=== PATIENT | female | born 1985 | race Caucasian/White ===

== ENCOUNTER 2016-07-27 21:10 | Emergency (ER) | payer OTHER ==
[~2016-07-27] VITALS: Ht 160 cm; Wt 96.4 kg
[~2016-07-27 21:10] MED LIST: ALPR0.5T8 PO; IBUP800T28 PO; INSLIS PERCUTAN
[2016-07-27 21:15] VITALS: BP 152/85; PULSE 129; RESP 22; O2SAT 100
[2016-07-28 00:02] LABS: BASOPHILS % (AUTO) 0.1 % (0-3); EOSINOPHILS % (AUTO) 0.7 % (0-5); MONOCYTES % (AUTO) 7.2 % (4-12); Mean Corpuscular Hemoglobin 33.3 pg (27.0-35.0); Mean Corpuscular Volume 93.3 fL (81-100); NEUTROPHILS % (AUTO) 77.6 % (40-74); Platelet Count 138 bil/L (150-400)
[2016-07-28 00:24] LABS: Magnesium 1.5 mg/dL (1.6-2.6)
--- NOTE | 2016-07-28 01:06 | ED.REPORT ---
HPI-Preg Under 20 Weeks Date of Service Jul 28, 2016 ED Provider: Jhonny Kate MD Patient is 31 year old female who is 19 weeks and has a history of Type 1 diabetes mellitus and anxiety who presents to the ED complaining of severe abdominal pain that began yesterday evening. Her pain begins at her waist and extends all the way down to her suprapubic region. She also reports having low back pain, with a "bulge" that is present on the left side of her low back. Patient denies experiencing any abdominal pain or vaginal bleeding during this . Patient reports the sensation that her heart is racing and admits that she has a history of anxiety. She has been unable to take her usual anxiety medications due to her . The patient has not previously had a miscarriage or an incompetent cervix. Patient reports that she has been unable to urinate since arriving to the ED. She denies dysuria or increased urination. Patient also reports having swelling in her legs, which is abnormal for her. Her VOCATIONAL TECHNICAL EDUCATION TEACHER is Dr. Roberts. Nursing Notes Stated Complaint: 19WEEKS PREG/PELVIC PAIN/TYPE 1 DIABETIC Chief Complaint: Female Abdominal Pain Nursing Notes Reviewed: Yes Allergies: Coded Allergies: Opioids-Meperidine and Related (Verified Allergy, Severe, HIVES ( ALLERGIC TO PRESERVATIVE-FREE WELL), 07/27/16) Sulfa (Sulfonamide Antibiotics) (Verified Allergy, Severe, RASH, 07/27/16) meperidine (Verified Allergy, Severe, HIVES, 07/27/16) oxycodone HCl (Verified Allergy, Unknown, UNKNOWN (tolerates vicodin), 07/27) varenicline (Verified Allergy, Unknown, 07/27/16) acetaminophen (Verified Adverse Reaction, Severe, elevated liver function tests from [facility], 07/27/16) Scheduled Insulin Human Lispro (HumaLOG U100 Insulin Vial) 100 Unit/Ml Unit Unknown Dose PERCUTAN continuous infusion Check blood sugars before meals and at bedtime. Use correction factor only before meals. Blood Sugar Lispro Correction: <151, 0 units; 151-175, 1 unit; 176-200, 2 units; 201-225, 3 units; 226-250, 4 units; 251-275, 5 units; 276-300 , 6 units; 301-325, 7 units; 326-350, 8 units; 351-375, 9 units; 376-400, 10 units; >400, 12 units. Scheduled PRN Alprazolam (Alprazolam) 0.5 Mg Tablet 0.5 MG PO BID PRN PRN For Anxiety Ibuprofen (Ibuprofen) 800 Mg Tablet 800 MG PO TID PRN PRN For Pain General Time Seen by Provider: 01:13 Chief Complaint Abdominal pain Hx Obtained From: Patient Arrived By: Walk-in Onset Occurred: 1 day ago Symptom Duration: Since onset Progression Since Onset: Gradually worsening Location: : Abdomen lower Quality: Painful Severity: Current: Severe Severity: Maximum: Severe Recent Healthcare: No recent doctor visit, No recent hospitalization Similar Sx Previous: No Past Medical History Past Medical History Type 1 diabetes mellitus Elevated liver enzymes. Scoliosis. anxiety Past Surgical History Reports: , Hysterectomy Family History Noncontributory Smoking History Former Smoker Social History Other Social History: Good social support, Lives with children, Local resident Ambulatory Status Independent Review of Systems Cardiovascular: Reports: Palpitations GI: Reports: Abdominal pain Female: Reports: , Urination decreased, Denies: Dysuria, Urination increased, Vaginal bleeding - abnl Musculoskeletal: Reports: Back pain, Extremity swelling, Denies: Extremity pain Complete sys rev & neg: except as marked. Psychiatric: Reports: Anxiety Physical Exam Initial Vital Signs Vital Signs (First) Date Time Temp Pulse Resp B/P Pulse Ox O2 Delivery O2 Flow Rate FiO2 07/27/16 21:15 37.0 129 22 152/85 100 Room Air Initial VS: Reviewed, Vital signs abnormal Head / Eyes: Atraumatic, Normocephalic, PERRL ENT: Mucous membranes moist Neck: Supple, Full range of motion Neurologic: Alert, Oriented, Nonfocal General/Constitutional: Awake, Alert Behavior: Positive: Agitated, Anxious Abdomen: Soft, Non-tender gravid abdomen Female Genitourinary: Exam deferred : FHTs NL Respiratory / Chest: Breath sounds NL, Breath sounds = bilat, No respiratory distress, No rales, No rhonchi, No wheezing Cardiovascular: Regular rhythm, Heart sounds NL, No murmurs Heart Rate / Rhythm: Positive: Tachycardia Lower Extremity / Pelvis / MS: No deformity, Neurologic intact, Vascular intact edematous legs Skin: Warm, Dry Abscess #1 Location/Condition: Positive: Perirectal... (Tender, appears deep) Abnormal Mood/Affect: Positive: Anxious Interpretation & Diagnostics Lab Results Interpretation Result Diagram: 07/27/16 2350 07/27/16 2350 Test 07/27/16 23:45 07/27/16 23:50 Hold Urine Received (Received) White Blood Count 14.8th/mm3 (3.8-10.1) Red Blood Count 4.00mil/mm3 (3.90-5.20) Hemoglobin 13.3g/dL (12.0-15.6) Hematocrit 37.3% (35.0-46.0) Mean Corpuscular Volume 93.3fL (81-100) Mean Corpuscular Hemoglobin 33.3pg (27.0-35.0) Mean Corpuscular Hemoglobin Concent 35.7% (32.0-37.0) Red Cell Distribution Width 12.5% (12.3-15.4) Platelet Count 138bil/L (150-400) Neutrophils (%) (Auto) 77.6% (40-74) Lymphocytes (%) (Auto) 13.5% (14-46) Monocytes (%) (Auto) 7.2% (4-12) Eosinophils (%) (Auto) 0.7% (0-5) Basophils (%) (Auto) 0.1% (0-3) Sodium Level 134mEq/L (134-144) Potassium Level 3.7mEq/L (3.5-5.2) Chloride Level 100mEq/L (97-108) Carbon Dioxide Level 21mmol/L (18-29) Blood Urea Nitrogen 9mg/dL (6-20) Creatinine 0.46mg/dL (0.57-1.00) Estimat Glomerular Filtration Rate 225mL/min (>59) Glucose Level 91mg/dL (60-99) Calcium Level 9.1mg/dL (8.5-10.1) Magnesium Level 1.5mg/dL (1.6-2.6) Total Bilirubin 0.5mg/dL (0.0-1.2) Aspartate Amino Transf (AST/SGOT) 59U/L (0-50) Alanine Aminotransferase (ALT/SGPT) 121U/L (0-32) Alkaline Phosphatase 127U/L (25-150) Total Protein 6.4g/dL (6.4-8.4) Albumin 3.2g/dL (3.4-5.0) Lab Results Interpretation: Elevated white blood count Procedures Incision & Drainage Abscess Time: 02:25 Procedure Performed by: ED physician Consent / Setup / Site Prep: Consent from patient, Time-out performed, Hand hygiene observed, Stand sterile technique, Standard surgical scrub, Sterile drapes applied Location of Abscess: left perirectal Skin Preparation Agent: Shurclens Local Anesthesia: Lidocaine w epi 1%, Other (6cc) Incised Abscess with Scalpel: #11 Pus Drained: Medium, Purulent discharge Irrigation: Yes, Copious Post-Procedure / Complications: Packing placed (10cm of 1/4 inch plain), Dressing applied, No complications, Condition improved, Tolerated procedure well , Patient stable Re-Eval/Medical Decision Med Decision/Clinical Course 31-year-old female at 19 weeks presents with a perirectal abscess and a panic attack associated with this. She was given Dilaudid for pain management and anxiolysis. The abscess was I&D without difficulty. She was placed on Augmentin and will follow up with her regular doctor. Source of Hx: Old records Re-Evaluation/Progress : Time of Eval: 02:45 Patient Status: Condition improved Re-Evaluation/Progress Note: I&D complete. Patient understands and agrees with the plan to be discharged home. Discharge instructions and follow-up discussed. All questions were addressed. Return to the ED warnings given. Counseled Regarding: Diagnosis, Lab results, Need for follow-up, When/why to return to ED Discharge & Departure Primary Impression: Perirectal abscess Disposition: Home Discharge Condition All VS Reviewed: Yes Condition: Stable Patient Instructions: Abscess Incision and Drainage (ED) Additional Instructions: Amoxicillin clavulanate (Augmentin) 875 mg, one pill twice a day for 10 days for 20 prescription written. Warm compresses. Follow-up with one of your doctors in 2 days for recheck and repacking if needed. Tylenol as needed for pain. Referrals: Desi Roberts MD (PCP) Vikashibe Attestation Portions of this note were transcribed by Khadra Dominguez. I, Dr. Kate personally performed the history, physical exam and medical decision-making; I reviewed and confirmed the accuracy of the information in the transcribed note. Signed by: Natalya Cotto, 07/28/2016 0404 copies to: Desi Roberts MD, Howard L MD Jul 28, 2016 01:06 Khadra Dominguez Jul 28, 2016 01:14
[2016-07-28] MEDS ORDERED: HYDROmorphone 1 mg/mL Inj IM ONE (01:15)
[2016-07-28 01:43] VITALS: BP 122/66; PULSE 109; RESP 18; O2SAT 97
[2016-07-28] MEDS ORDERED: Lidocaine 1%-Epi 1:100,000 20 mL Inj ONE (01:46)
[2016-07-28 03:11] VITALS: BP 131/73; PULSE 65; RESP 15; O2SAT 100
[2016-07-28] MEDS ORDERED: _Amoxicillin-Clavulanate 875-125 mg Tablet PO SCH (08:30)
== END 2016-07-28 03:11 | disposition home or self-care (01) ==
LOC: SED 21:38
DX: O99.89 Other specified diseases and conditions complicating pregnancy, childbirth and the puerperium (principal); K61.1 Rectal abscess; R10.30 Lower abdominal pain, unspecified; Z3A.19 19 weeks gestation of pregnancy; E10.9 Type 1 diabetes mellitus without complications; Z87.891 Personal history of nicotine dependence; Z79.899 Other long term (current) drug therapy; Z88.8 Allergy status to other drugs, medicaments and biological substances; Z88.5 Allergy status to narcotic agent; Z88.2 Allergy status to sulfonamides; Z79.4 Long term (current) use of insulin
CPT/HCPCS: 36415; 46050; 80053; 81025; 83735; 85025; 96372; 99285; J1170

== ENCOUNTER 2016-07-28 15:05 | Emergency (ER) | payer OTHER ==
[~2016-07-28] VITALS: Ht 160 cm; Wt 96.4 kg
[2016-07-28 15:09] VITALS: BP 116/74; PULSE 98; RESP 18; O2SAT 99
--- NOTE | 2016-07-28 16:44 | ED.REPORT ---
HPI-Rash / Abscess Date of Service Jul 28, 2016 ED Provider: Sage Auguste MD The patient is a 31 year old female with history of diabetes mellitus, who presents to the emergency department for a wound recheck. The patient was seen in this ED yesterday and had a perirectal abscess incised, drained, and packed. She noticed oozing from the site and the packing fell out prior to arrival. She denies fever, chills, nausea or vomiting She is currently 20 weeks . Nursing Notes Stated Complaint: INCISION BLEEDING Chief Complaint: Skin Rash/Abscess Nursing Notes Reviewed: Yes Allergies: Coded Allergies: Opioids-Meperidine and Related (Verified Allergy, Severe, HIVES ( ALLERGIC TO PRESERVATIVE-FREE WELL), 07/27/16) Sulfa (Sulfonamide Antibiotics) (Verified Allergy, Severe, RASH, 07/27/16) meperidine (Verified Allergy, Severe, HIVES, 07/27/16) oxycodone HCl (Verified Allergy, Unknown, UNKNOWN (tolerates vicodin), 07/27) varenicline (Verified Allergy, Unknown, 07/27/16) acetaminophen (Verified Adverse Reaction, Severe, elevated liver function tests from [facility], 07/27/16) Scheduled Insulin Human Lispro (HumaLOG U100 Insulin Vial) 100 Unit/Ml Unit Unknown Dose PERCUTAN continuous infusion Check blood sugars before meals and at bedtime. Use correction factor only before meals. Blood Sugar Lispro Correction: <151, 0 units; 151-175, 1 unit; 176-200, 2 units; 201-225, 3 units; 226-250, 4 units; 251-275, 5 units; 276-300 , 6 units; 301-325, 7 units; 326-350, 8 units; 351-375, 9 units; 376-400, 10 units; >400, 12 units. Scheduled PRN Alprazolam (Alprazolam) 0.5 Mg Tablet 0.5 MG PO BID PRN PRN For Anxiety Ibuprofen (Ibuprofen) 800 Mg Tablet 800 MG PO TID PRN PRN For Pain General Time Seen by MD: 16:44 Chief Complaint Abscess (recheck) Hx Obtained From: Patient Arrived By: Walk-in Onset Occurred: 5 - 8 hours ago Symptom Duration: Since onset Location: : Rectal area Quality: Painful Severity: Current: Mild Severity: Maximum: Mild Pertinent Negative: Pt denies other symptoms Recent Healthcare: No recent hospitalization, Recent doctor visit Similar Sx Previous: Yes Past Medical History Past Medical History Type 1 diabetes mellitus Elevated liver enzymes. Scoliosis. anxiety Past Surgical History Reports: , Hysterectomy Family History Noncontributory Smoking History Former Smoker Social History Other Social History: Good social support, Lives with children, Local resident Ambulatory Status Independent Review of Systems Review of Systems Note: +wound recheck Constitutional: Denies: Chills, Fever GI: Denies: Nausea, Vomiting Musculoskeletal: Reports: Extremity pain Skin: Reports Rash Complete sys rev & neg: except as marked. Female: Reports: Physical Exam Initial Vital Signs Vital Signs (First) Date Time Temp Pulse Resp B/P Pulse Ox O2 Delivery O2 Flow Rate FiO2 07/28/16 15:09 36.7 98 18 116/74 99 Room Air Initial VS: Reviewed Head / Eyes: Atraumatic, Normocephalic, PERRL ENT: Mucous membranes moist, Conjunctiva normal, No scleral icterus Neck: Supple, Non-tender, Full range of motion Respiratory: Breath sounds normal, Clear to auscultation, No respiratory distress Cardiovascular: Regular rate & rhythm, Heart sounds normal, Intact distal pulses Abdomen / GI: Soft, Non-tender, No guarding, No rebound, No distention Extremities: Vascular intact, Neuro intact, No swelling, No tenderness Neurologic: Alert, Oriented, Nonfocal Psychiatric: Mood/affect normal, Behavior normal, Normal thought content General/Constitutional: Awake, Alert, No acute distress, Cooperative Skin: Color NL, Warm, Dry Rash / Lesion Notes: 1 cm incision left perirectal. There is no fluctuance or swelling. There was a small amount of purulent drainage. No surrounding erythema. Procedures Procedure Notes: NOTES: I repacked the recently incised and drained perirectal abscess. 1/4 inch gauze was used. Patient tolerated procedure well. No complications. Re-Eval/Medical Decision Med Decision/Clinical Course 31-year-old female 20 weeks with left perirectal abscess I&D last night. She is here because the packing came out. It is still draining. It is still open. There is no surrounding erythema or fluctuance. I replaced the packing. I gave her more packing to replace home. She is advised to place at home and do sitz baths twice a day. Follow-up with primary doctor 2 days for recheck. Source of Hx: Old records Re-Evaluation/Progress : Time of Eval: 17:18 Re-Evaluation/Progress Note: Rechecked the patient. Discussed plan to replace the packing and discharge home. All questions were addressed. Counseled Regarding: Diagnosis, Need for follow-up, When/why to return to ED Discharge & Departure Impression: Primary Impression: Encounter for wound re-check Additional Impression: Perirectal abscess Disposition: Home Discharge Condition All VS Reviewed: Yes Condition: Stable Patient Instructions: Abscess Incision and Drainage (ED) Additional Instructions: Thank you for entrusting us with your care today. We were able to recheck the wound and replace the packing. The wound appears to be healing well. If the packing falls out again you can either go to your doctor, urgent care, or you can replace it yourself. Continue to take the Augmentin as previously prescribed. Continue to apply warm compresses a few times throughout the day. I also recommend taking Epson salt baths 1-2 times per day. Followup with your regular doctor for recheck in the next 1-2 days. Please return to the emergency department if you develop increased pain, swelling or redness, fever, chills, vomiting, or any other new or concerning symptoms. Referrals: Desi Roberts MD (PCP) Scribe Attestation Portions of this note were transcribed by Leni Palacios. I, Dr. Auguste personally performed the history, physical exam and medical decision-making; I reviewed and confirmed the accuracy of the information in the transcribed note. Signed by: Natalya Pringle, 07/28/2016 at 1730. copies to: Desi Roberts MD, Ben M MD Jul 28, 2016 16:44 Leni Palacios Jul 28, 2016 16:56
[2016-07-28] MEDS ORDERED: HYDROmorphone 0.5 mg/0.5 mL iSecure Syringe IM ONE (17:25)
== END 2016-07-28 17:52 | disposition home or self-care (01) ==
LOC: SED 15:05
DX: O99.712 Diseases of the skin and subcutaneous tissue complicating pregnancy, second trimester (principal); K61.1 Rectal abscess; E10.9 Type 1 diabetes mellitus without complications; Z3A.20 20 weeks gestation of pregnancy; Z48.01 Encounter for change or removal of surgical wound dressing; Z87.891 Personal history of nicotine dependence; Z79.4 Long term (current) use of insulin; Z88.5 Allergy status to narcotic agent; Z88.2 Allergy status to sulfonamides; Z88.8 Allergy status to other drugs, medicaments and biological substances; Z88.6 Allergy status to analgesic agent
CPT/HCPCS: 96372; 99283; J1170

== ENCOUNTER 2016-08-13 00:52 | Emergency (ER) | payer OTHER ==
[~2016-08-13] VITALS: Ht 160 cm; Wt 96.4 kg
[2016-08-13 00:54] VITALS: BP 137/68; PULSE 116; RESP 20; O2SAT 98
--- NOTE | 2016-08-13 01:26 | ED.REPORT ---
HPI-Rash / Abscess Date of Service Aug 13, 2016 ED Provider: Andre Wong DO A 22 week 31 year old female with a history of anxiety, diabetes, and c -section presents to the ED complaining of an abscess on her right buttock. The pt has been seen in the ED for this previously, but the abscess continues to worsen. She fell on her buttocks prior to arrival, but denies abdominal pain or vaginal bleeding. The pt has an appointment with a surgeon in the morning. Nursing Notes Stated Complaint: FALL/ SKIN RASH ABSCESS Chief Complaint: Skin Rash/Abscess Nursing Notes Reviewed: Yes Allergies: Coded Allergies: Opioids-Meperidine and Related (Verified Allergy, Severe, HIVES ( ALLERGIC TO PRESERVATIVE-FREE WELL), 08/13/16) Sulfa (Sulfonamide Antibiotics) (Verified Allergy, Severe, RASH, 08/13/16) meperidine (Verified Allergy, Severe, HIVES, 08/13/16) oxycodone HCl (Verified Allergy, Unknown, UNKNOWN (tolerates vicodin), ) varenicline (Verified Allergy, Unknown, 08/13/16) acetaminophen (Verified Adverse Reaction, Severe, elevated liver function tests from [facility], 08/13/16) Scheduled Insulin Human Lispro (HumaLOG U100 Insulin Vial) 100 Unit/Ml Unit Unknown Dose PERCUTAN continuous infusion Check blood sugars before meals and at bedtime. Use correction factor only before meals. Blood Sugar Lispro Correction: <151, 0 units; 151-175, 1 unit; 176-200, 2 units; 201-225, 3 units; 226-250, 4 units; 251-275, 5 units; 276-300 , 6 units; 301-325, 7 units; 326-350, 8 units; 351-375, 9 units; 376-400, 10 units; >400, 12 units. Scheduled PRN Alprazolam (Alprazolam) 0.5 Mg Tablet 0.5 MG PO BID PRN PRN For Anxiety Ibuprofen (Ibuprofen) 800 Mg Tablet 800 MG PO TID PRN PRN For Pain General Time Seen by MD: 01:25 Chief Complaint Abscess Hx Obtained From: Patient Arrived By: Walk-in Onset Occurred: More than a week ago... Symptom Duration: Since onset Recent Healthcare: No recent hospitalization, Recent doctor visit Similar Sx Previous: Yes Past Medical History Past Medical History Type 1 diabetes mellitus Elevated liver enzymes. Scoliosis. anxiety asthma, resolved Past Surgical History breat reduction abdominoplasty Reports: Family History Noncontributory Smoking History Former Smoker Social History Other Social History: Good social support, Lives with children, Local resident Ambulatory Status Independent Review of Systems Review of Systems Note: abscess Constitutional: Denies: Fever Respiratory: Denies: Non-productive cough Cardiovascular: Denies: Chest pain GI: Denies: Abdominal pain, Nausea, Vomiting Complete sys rev & neg: except as marked. Female: Denies: Vaginal bleeding - abnl Physical Exam Initial Vital Signs Vital Signs (First) Date Time Temp Pulse Resp B/P Pulse Ox O2 Delivery O2 Flow Rate FiO2 08/13/16 00:54 36.6 116 20 137/68 98 Room Air Initial VS: Reviewed General/Constitutional: Awake, Alert Skin: Atraumatic, Color NL, No rash, Warm, Dry Head / Eyes: Atraumatic, Normocephalic, PERRL, EOMI ENT: Atraumatic, Airway patent, Mucous membranes moist Respiratory / Chest: Atraumatic, Breath sounds NL, Breath sounds = bilat, No respiratory distress Cardiovascular: Heart rate NL, Regular rhythm, Heart sounds NL Upper Extremity / MS: Atraumatic, Full range of motion Lower Extremity / Pelvis / MS: Atraumatic, Full range of motion Neurologic: Oriented X3, Speech NL, No motor deficits, No sensory deficits Neck: Atraumatic, Supple, Full range of motion Abdomen: Atraumatic, Soft, Non-tender Back: Atraumatic, Full range of motion Female Genitourinary: 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, Atraumatic gravid, nontender uterus Rectum / Perineum: Atraumatic perianal abscess at the 6 o'clock position with firmness and fluctuance Psychiatric: Affect NL, Mood NL Interpretation & Diagnostics Lab Results Interpretation Result Diagram: 08/13/16 02208/13/16 022 Test 08/13/16 02:20 White Blood Count 12.3th/mm3 (3.8-10.1) Red Blood Count 4.32mil/mm3 (3.90-5.20) Hemoglobin 14.2g/dL (12.0-15.6) Hematocrit 40.4% (35.0-46.0) Mean Corpuscular Volume 93.5fL (81-100) Mean Corpuscular Hemoglobin 32.9pg (27.0-35.0) Mean Corpuscular Hemoglobin Concent 35.1% (32.0-37.0) Red Cell Distribution Width 12.7% (12.3-15.4) Platelet Count 161bil/L (150-400) Neutrophils (%) (Auto) 71.9% (40-74) Lymphocytes (%) (Auto) 19.9% (14-46) Monocytes (%) (Auto) 5.9% (4-12) Eosinophils (%) (Auto) 1.0% (0-5) Basophils (%) (Auto) 0.3% (0-3) Urine Color Straw (YELLOW) Urine Appearance Clear (CLEAR,HAZY) Urine pH 6.5 (5.0-8.0) Urine Specific [place] 1.003 (1.003-1.035) Urine Protein Negativemg/dL (NEG,TRACE) Urine Glucose (UA) Negativemg/dL (NEGATIVE) Urine Ketones Negativemg/dL (NEGATIVE) Urine Occult Blood Negative (NEGATIVE) Urine Nitrite Negative (NEGATIVE) Urine Bilirubin Negative (NEGATIVE) Urine Urobilinogen Normalmg/dL (NORMAL) Urine Leukocyte Esterase Negative (NEGATIVE) Urine RBC 0-2/hpf (0-2) Urine WBC 0-5/hpf (0-5) Urine Epithelial Cells Occasional/hpf (NONE-MOD) Urine Crystals None seen (NONE SEEN) Urine Bacteria None/hpf (NONE-FEW) Urine Hyaline Casts None/lpf (NONE) Urine Granular Casts None seen (NONE SEEN) Urine Waxy Casts None seen (NONE SEEN) Urine Red Blood Cell Casts None seen (NONE SEEN) Urine White Blood Cell Casts None seen (NONE SEEN) Urine Mucus None seen (None Seen) Urine Trichomonas None seen (NONE SEEN) Urine Yeast None (NONE SEEN) Urine Culture Reflexed Not indicated Sodium Level 136mEq/L (134-144) Potassium Level 3.5mEq/L (3.5-5.2) Chloride Level 101mEq/L (97-108) Carbon Dioxide Level 20mmol/L (18-29) Blood Urea Nitrogen 11mg/dL (6-20) Creatinine 0.45mg/dL (0.57-1.00) Estimat Glomerular Filtration Rate 231mL/min (>59) Glucose Level 141mg/dL (60-99) Calcium Level 9.6mg/dL (8.5-10.1) Total Bilirubin 0.5mg/dL (0.0-1.2) Aspartate Amino Transf (AST/SGOT) 81U/L (0-50) Alanine Aminotransferase (ALT/SGPT) 140U/L (0-32) Alkaline Phosphatase 155U/L (25-150) Total Protein 6.9g/dL (6.4-8.4) Albumin 3.6g/dL (3.4-5.0) Hold Singh Top Tube Received (Received) Pulse Oximetry Interpretation Pulse Oximetry Interpretation: 98% on room air Pulse Oximetry: Pulse Ox normal Procedures Lab Results Interpretation Result Diagram: 08/13/1621908/13/16219 Test 08/13/16 02:20 White Blood Count 12.3th/mm3 (3.8-10.1) Red Blood Count 4.32mil/mm3 (3.90-5.20) Hemoglobin 14.2g/dL (12.0-15.6) Hematocrit 40.4% (35.0-46.0) Mean Corpuscular Volume 93.5fL (81-100) Mean Corpuscular Hemoglobin 32.9pg (27.0-35.0) Mean Corpuscular Hemoglobin Concent 35.1% (32.0-37.0) Red Cell Distribution Width 12.7% (12.3-15.4) Platelet Count 161bil/L (150-400) Neutrophils (%) (Auto) 71.9% (40-74) Lymphocytes (%) (Auto) 19.9% (14-46) Monocytes (%) (Auto) 5.9% (4-12) Eosinophils (%) (Auto) 1.0% (0-5) Basophils (%) (Auto) 0.3% (0-3) Urine Color Straw (YELLOW) Urine Appearance Clear (CLEAR,HAZY) Urine pH 6.5 (5.0-8.0) Urine Specific All[place] 1.003 (1.003-1.035) Urine Protein Negativemg/dL (NEG,TRACE) Urine Glucose (UA) Negativemg/dL (NEGATIVE) Urine Ketones Negativemg/dL (NEGATIVE) Urine Occult Blood Negative (NEGATIVE) Urine Nitrite Negative (NEGATIVE) Urine Bilirubin Negative (NEGATIVE) Urine Urobilinogen Normalmg/dL (NORMAL) Urine Leukocyte Esterase Negative (NEGATIVE) Urine RBC 0-2/hpf (0-2) Urine WBC 0-5/hpf (0-5) Urine Epithelial Cells Occasional/hpf (NONE-MOD) Urine Crystals None seen (NONE SEEN) Urine Bacteria None/hpf (NONE-FEW) Urine Hyaline Casts None/lpf (NONE) Urine Granular Casts None seen (NONE SEEN) Urine Waxy Casts None seen (NONE SEEN) Urine Red Blood Cell Casts None seen (NONE SEEN) Urine White Blood Cell Casts None seen (NONE SEEN) Urine Mucus None seen (None Seen) Urine Trichomonas None seen (NONE SEEN) Urine Yeast None (NONE SEEN) Urine Culture Reflexed Not indicated Sodium Level 136mEq/L (134-144) Potassium Level 3.5mEq/L (3.5-5.2) Chloride Level 101mEq/L (97-108) Carbon Dioxide Level 20mmol/L (18-29) Blood Urea Nitrogen 11mg/dL (6-20) Creatinine 0.45mg/dL (0.57-1.00) Estimat Glomerular Filtration Rate 231mL/min (>59) Glucose Level 141mg/dL (60-99) Calcium Level 9.6mg/dL (8.5-10.1) Total Bilirubin 0.5mg/dL (0.0-1.2) Aspartate Amino Transf (AST/SGOT) 81U/L (0-50) Alanine Aminotransferase (ALT/SGPT) 140U/L (0-32) Alkaline Phosphatase 155U/L (25-150) Total Protein 6.9g/dL (6.4-8.4) Albumin 3.6g/dL (3.4-5.0) Hold Singh Top Tube Received (Received) US FAST Exam reassuring heart tones tones: 160 normal movement no contractions Exam Performed by: ED physician Exam Type: Diagnostic Clinical Category: Initial exam Exam Interpreted by: ED physician Indication: Re-Eval/Medical Decision Med Decision/Clinical Course Reassuring ultrasound with good motion and heart rate of 160. No signs of active labor. There is a perianal tenderness and possible abscess. She is going to see his surgeon in less than 6 hours and feel that emergent intervention beyond pain control is indicated right now. She may need an endoscopy to see the extent and the origin of the abscess. There is no evidence of cutaneous involvement at this time. No signs of cellulitis. She will be treated with a dose of IV Dilaudid we will check labs. If all is stable she will be transferred up to labor and delivery for monitoring and then she will be discharged home to see her surgeon later this morning. A labor and delivery nurse came down and did the monitoring. No contractions. Reassuring heart tones. She cleared for discharge. I talked her about her liver enzymes. They are actually a little bit more elevated. She is going to discuss this with her primary care and obstetrics. She feels ready be discharged home and she has follow-up here in a few hours. Source of Hx: Old records Re-Evaluation/Progress : Time of Eval: 01:58 Patient Status: Condition improved Re-Evaluation/Progress Note: Diagnosis and the plan for discharge are discussed. The pt understands and agrees with the plan. All questions are addressed at this time. Counseled Regarding: Diagnosis, Need for follow-up, When/why to return to ED Discharge & Departure Impression: Primary Impression: Perianal abscess Disposition: Home Discharge Condition All VS Reviewed: Yes Condition: Stable Patient Instructions: Abscess (ED) Additional Instructions: . Keep your follow up appointment with Dr. Brady later this morning. Return to the emergency department if you develop any new or worsening symptoms. Discuss pain management with Dr. Brady, Do not drive tonight as you have received IV opiates. 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 Up date the office tomorrow as well. Keep a closes eye on your blood sugar and your liver enzymes. Return if any problems or any worsening symptoms. Your liver enzymes continue to trend up. Your doctor needs to be made aware of this. Call tomorrow to let them know. Referrals: Desi Roberts MD (PCP) Kip Brady MD Attestation Portions of this note were transcribed by Yamel Chambers. I, Dr. Wong personally performed the history, physical exam and medical decision-making; I reviewed and confirmed the accuracy of the information in the transcribed note. Signed by: Natalya Peck, 08/13/2016 and 0227. copies to: Desi Roberts MD; Kip Brady MD, Todd P DO Aug 13, 2016 01:26 YAMEL CHAMBERS Aug 13, 2016 01:59
[2016-08-13] MEDS ORDERED: 0.9% Sodium Chloride 1,000 ML IV ONE (01:55)
[2016-08-13] MEDS ORDERED: Ondansetron 2 mg/mL 2 mL Inj IVPUSH PRN (01:55)
[2016-08-13] MEDS: HYDROmorphone 0.5 mg/0.5 mL iSecure Syringe IVPUSH PRN ×2 (02:24→03:09)
[2016-08-13 02:34] LABS: BASOPHILS % (AUTO) 0.3 % (0-3); MONOCYTES % (AUTO) 5.9 % (4-12); Mean Corpuscular Hemoglobin 32.9 pg (27.0-35.0); Mean Corpuscular Volume 93.5 fL (81-100); NEUTROPHILS % (AUTO) 71.9 % (40-74); Platelet Count 161 bil/L (150-400)
[2016-08-13 02:45] LABS: APPEARANCE,URINE CLEAR (CLEAR,HAZY); COLOR,URINE STRAW (YELLOW); OCCULT BLOOD,URINE NEGATIVE (NEGATIVE); PH,URINE 6.5 (5.0-8.0); UROBILINOGEN,URINE NORMAL (NORMAL)
[2016-08-13 03:21] VITALS: BP 135/70; PULSE 102; RESP 18; O2SAT 99
[2016-08-13] MEDS ORDERED: Sodium Chloride LOK Flush 10 mL Syringe IVFLUSH SCH (08:30)
== END 2016-08-13 03:22 | disposition home or self-care (01) ==
LOC: SED 00:52
DX: O99.612 Diseases of the digestive system complicating pregnancy, second trimester (principal); K61.0 Anal abscess; F41.9 Anxiety disorder, unspecified; E10.9 Type 1 diabetes mellitus without complications; J45.909 Unspecified asthma, uncomplicated; Z3A.22 22 weeks gestation of pregnancy; Z98.890 Other specified postprocedural states; Z87.891 Personal history of nicotine dependence; Z79.4 Long term (current) use of insulin; Z88.5 Allergy status to narcotic agent; Z88.2 Allergy status to sulfonamides; Z88.8 Allergy status to other drugs, medicaments and biological substances; Z88.6 Allergy status to analgesic agent
CPT/HCPCS: 36415; 80053; 81000; 85025; 96374; 96375; 96376; 99285; J1170; J2405; J7030

== ENCOUNTER 2016-08-25 21:09 | Emergency (ER) | payer OTHER ==
[~2016-08-25] VITALS: Ht 160 cm; Wt 99.1 kg
[2016-08-25 21:32] VITALS: BP 119/76; PULSE 95; RESP 21; O2SAT 98
--- NOTE | 2016-08-25 22:10 | ED.REPORT ---
HPI-General Illness Date of Service Aug 25, 2016 ED Provider: Dr. Villanueva A 31 year old female presents to the ED complaining of painful abscess on her left butt cheek described as being close to her anus onset 1 month ago. She went to the hospital immediately at onset and she had an MRI done 4 days ago. She was on Amoxicillin and Augmentin when the symptoms onset. Since onset, the abscess has gotten harder. She has been taking Epson salt bathes daily with mild relief. Nursing Notes Stated Complaint: HIGH BLOOD SUGAR, INCISION HOT/HARD/PAINFUL Chief Complaint: Skin Rash/Abscess Nursing Notes Reviewed: Yes Allergies: Coded Allergies: Opioids-Meperidine and Related (Verified Allergy, Severe, HIVES ( ALLERGIC TO PRESERVATIVE-FREE WELL), 08/13/16) Sulfa (Sulfonamide Antibiotics) (Verified Allergy, Severe, RASH, 08/13/16) meperidine (Verified Allergy, Severe, HIVES, 08/13/16) oxycodone HCl (Verified Allergy, Unknown, UNKNOWN (tolerates vicodin), ) varenicline (Verified Allergy, Unknown, 08/13/16) acetaminophen (Verified Adverse Reaction, Severe, elevated liver function tests from [facility], 08/13/16) Scheduled Insulin Human Lispro (HumaLOG U100 Insulin Vial) 100 Unit/Ml Unit Unknown Dose PERCUTAN continuous infusion Check blood sugars before meals and at bedtime. Use correction factor only before meals. Blood Sugar Lispro Correction: <151, 0 units; 151-175, 1 unit; 176-200, 2 units; 201-225, 3 units; 226-250, 4 units; 251-275, 5 units; 276-300 , 6 units; 301-325, 7 units; 326-350, 8 units; 351-375, 9 units; 376-400, 10 units; >400, 12 units. Scheduled PRN Alprazolam (Alprazolam) 0.5 Mg Tablet 0.5 MG PO BID PRN PRN For Anxiety Ibuprofen (Ibuprofen) 800 Mg Tablet 800 MG PO TID PRN PRN For Pain General Time Seen by MD: 22:10 Chief Complaint Other (Abscess) Hx Obtained From: Patient Arrived By: Walk-in Sudden in Onset?: No Onset Occurred: More than a week ago... (1 month) Symptom Duration: Since onset Severity: Current: Moderate Severity: Maximum: Severe Recent Healthcare: Recent doctor visit Similar Sx Previous: No Past Medical History Past Medical History Patient is 24 weeks . Patient visited ED on 08/13/2016 and was admitted for I&D for perirectal abscess. Recently at wound care clinic, the patient had I&D attempted with suction. She was scheduled for surgery to treat the abscess at last week, but they did not perform the surgery because they were waiting for the MRI results. Type 1 diabetes mellitus Elevated liver enzymes. Scoliosis. anxiety asthma, resolved Past Surgical History breast reduction. abdominoplasty. Reports: (x2) Family History Noncontributory Smoking History Former Smoker Social History Other Social History: Good social support, Lives with children, Local resident Ambulatory Status Independent Review of Systems Abscess on left butt cheek. Full Review of Systems Female: Reports: Complete sys rev & neg: except as marked. Physical Exam Vital Signs Vital Signs Date Time Temp Pulse Resp B/P Pulse Ox O2 Delivery O2 Flow Rate FiO2 08/25/16 21:32 36.3 95 21 119/76 98 Room Air Initial VS: Reviewed Head / Eyes: Atraumatic, Normocephalic, PERRL ENT: Mucous membranes moist, Conjunctiva normal, No scleral icterus Respiratory: Breath sounds normal, Clear to auscultation, No respiratory distress Cardiovascular: Regular rate & rhythm, Heart sounds normal, Intact distal pulses Neurologic: Alert, Oriented General/Constitutional: Awake, Alert Patient is tearful, but in no physiological distress. Abdomen: No guarding, No rebound Upper Extremities Upper Extremity / MS: No swelling, No edema Wrist / Hand: No swelling, No edema Lower Extremity / Pelvis / MS: No swelling, No edema Ankle / Foot: No swelling, No edema Skin: Warm Patient has tender abscess or phlegmon that ultimately started to drain. Still considerable phlegmon in area left of preirectal at the 7 O'clock position. Neurologic: Oriented X3, Speech NL Interpretation & Diagnostics Lab Results Interpretation Test 08/25/16 22:00 08/25/16 22:13 Hold Urine Received (Received) Urine Color Straw (YELLOW) Urine Appearance Clear (CLEAR,HAZY) Urine pH 6.5 (5.0-8.0) Urine Specific [place] 1.015 (1.003-1.035) Urine Protein Negativemg/dL (NEG,TRACE) Urine Glucose (UA) >1000mg/dL (NEGATIVE) Urine Ketones Negativemg/dL (NEGATIVE) Urine Occult Blood Negative (NEGATIVE) Urine Nitrite Negative (NEGATIVE) Urine Bilirubin Negative (NEGATIVE) Urine Urobilinogen Normalmg/dL (NORMAL) Urine Leukocyte Esterase Negative (NEGATIVE) Urine RBC 0-2/hpf (0-2) Urine WBC 0-5/hpf (0-5) Urine Epithelial Cells Few/hpf (NONE-MOD) Urine Crystals None seen (NONE SEEN) Urine Bacteria Few/hpf (NONE-FEW) Urine Hyaline Casts None/lpf (NONE) Urine Granular Casts None seen (NONE SEEN) Urine Waxy Casts None seen (NONE SEEN) Urine Red Blood Cell Casts None seen (NONE SEEN) Urine White Blood Cell Casts None seen (NONE SEEN) Urine Mucus None seen (None Seen) Urine Trichomonas None seen (NONE SEEN) Urine Yeast None (NONE SEEN) Urinalysis Comment None Urine Culture Reflexed Not indicated Procedures Incision & Drainage Abscess I & D Abscess: I went straight into the hole that was previously established and lengthened it to prevent closure. I gently explored the area and found no oculations. Time: 22:29 Procedure Performed by: ED physician Consent / Setup / Site Prep: Consent from patient Skin Preparation Agent: Hibiclens - Chlorhexidine Local Anesthesia: Lidocaine 1% Incised Abscess with Scalpel: #11 Pus Drained: Bloody (Some purulence.) Post-Procedure / Complications: No complications, Condition improved, Tolerated procedure well, Patient stable Re-Eval/Medical Decision Med Decision/Clinical Course 31-year-old currently twenty-four weeks presents with an abscess in her left perirectal area. She was evaluated by surgery and anesthesia declined to do an anesthetic procedure on her, given lack of NICU support at her current level of . She was seen at but has had trouble getting her records transferred and they have declined to act without access to the MRI just recently done. While evaluating her, she began draining pus from a small opening in the area. Given that we have pus draining, I agreed to numb the area and extend the opening a bit to ensure drainage. Accordingly she was anesthetized locally with lidocaine and a small incision made in the pre-existing draining tract. A small amount of positive and blood were obtained. There remains a significant phlegmon. She is directed to continue her Augmentin. Hot soaks. Follow up with surgeons as planned. Source of Hx: Old records Time of Eval: 22:16 Re-Evaluation/Progress Note: Rechecked patient and explained that it is ulikely that I&D will be performed if [facility] surgeons were refusing to perform the surgery. Explained that I can expediate MRI results so the patient can get into surgery. Time of Eval: 22:29 Re-Evaluation/Progress Note: Rechecked patient and performed I&D procedure. Counseled Regarding: Diagnosis, Lab results, Need for follow-up, When/why to return to ED Discharge & Departure Shift Change Sign-Out Response to Therapy: Improved Primary Impression: Rachel-rectal abscess Additional Impression: Third trimester Disposition: Home Discharge Condition All VS Reviewed: Yes Condition: Improved Patient Instructions: Abscess Incision and Drainage (ED) Additional Instructions: Continue hot soaks three times daily. Follow-up with your surgeon at and your [employer]. Continue your Augmentin to complete the course. Return if any immediate problems. Referrals: Ayah Au (PCP) Scribe Attestation Portions of this note were transcribed by Archie Villa. I, Dr. Villanueva personally performed the history, physical exam and medical decision-making; I reviewed and confirmed the accuracy of the information in the transcribed note. Signed by: Natalya Bower, 08/26/2016, 0557. copies to: Ayah Au Christopher W MD Aug 25, 2016 22:10 Archie Villa Aug 25, 2016 22:18
[2016-08-25 22:22] LABS: APPEARANCE,URINE CLEAR (CLEAR,HAZY); COLOR,URINE STRAW (YELLOW); OCCULT BLOOD,URINE NEGATIVE (NEGATIVE); PH,URINE 6.5 (5.0-8.0); UROBILINOGEN,URINE NORMAL (NORMAL)
== END 2016-08-25 23:42 | disposition home or self-care (01) ==
LOC: SED 21:09
DX: O99.613 Diseases of the digestive system complicating pregnancy, third trimester (principal); K61.1 Rectal abscess; E10.9 Type 1 diabetes mellitus without complications; Z3A.24 24 weeks gestation of pregnancy; Z79.4 Long term (current) use of insulin; Z87.891 Personal history of nicotine dependence; Z88.2 Allergy status to sulfonamides; Z88.5 Allergy status to narcotic agent; Z88.8 Allergy status to other drugs, medicaments and biological substances

== ENCOUNTER 2016-12-02 15:08 | Emergency (ER) | payer OTHER ==
[~2016-12-02] VITALS: Ht 160 cm; Wt 90.0 kg
[2016-12-02 15:11] VITALS: BP 125/79; PULSE 95; RESP 20; O2SAT 98
--- NOTE | 2016-12-02 15:38 | ED.REPORT ---
HPI-General Illness Date of Service Dec 02, 2016 ED Provider: Andres Murray MD The patient is a 31 year old female w/ a hx of DM who presents to the ED c/o , stabbing, lower, right-sided back pain onset this morning 0700. The pain is worse with inhalation and radiates to the right side. Associated symptoms include nausea. Pt had a on 11/11, a recent right arm superficial thrombophlebitis and was put on antibiotics. She denies vomiting, loss of bowel/ bladder control, fever, urinary retention, chest pain, SOB, and abnormal vaginal discharge. Nursing Notes Stated Complaint: LOWER RIGHT BACK STABBING SHARP PAIN WHEN BREATHIN Chief Complaint: Back Pain or Injury Nursing Notes Reviewed: Yes Allergies: Coded Allergies: Opioids-Meperidine and Related (Verified Allergy, Severe, HIVES ( ALLERGIC TO PRESERVATIVE-FREE WELL), 12/02/16) Sulfa (Sulfonamide Antibiotics) (Verified Allergy, Severe, RASH, 12/02/16) meperidine (Verified Allergy, Severe, HIVES, 12/02/16) oxycodone HCl (Verified Allergy, Unknown, UNKNOWN (tolerates vicodin), 05/09) varenicline (Verified Allergy, Unknown, 12/02/16) acetaminophen (Verified Adverse Reaction, Severe, elevated liver function tests from [facility], 12/02/16) Scheduled Insulin Human Lispro (HumaLOG U100 Insulin Vial) 100 Unit/Ml Unit Unknown Dose PERCUTAN continuous infusion Check blood sugars before meals and at bedtime. Use correction factor only before meals. Blood Sugar Lispro Correction: <151, 0 units; 151-175, 1 unit; 176-200, 2 units; 201-225, 3 units; 226-250, 4 units; 251-275, 5 units; 276-300 , 6 units; 301-325, 7 units; 326-350, 8 units; 351-375, 9 units; 376-400, 10 units; >400, 12 units. Scheduled PRN Alprazolam (Alprazolam) 0.5 Mg Tablet 0.5 MG PO BID PRN PRN For Anxiety Ibuprofen (Ibuprofen) 800 Mg Tablet 800 MG PO TID PRN PRN For Pain General Time Seen by MD: 15:19 Chief Complaint Back pain Hx Obtained From: Patient Arrived By: Walk-in Sudden in Onset?: Yes Onset Occurred: 9 - 12 hours ago Symptom Duration: Since onset Location: : Back Quality: Painful, Stabbing Radiation: : Abdomen Severity: Current: Pain level 8 out of 10 Associated with: Reports: Nausea Recent Healthcare: Recent doctor visit, Recent hospitalization Similar Sx Previous: Yes Past Medical History Past Medical History recent right arm superficial thrombophlebitis Patient visited ED on 08/13/2016 and was admitted for I&D for perirectal abscess. Recently at wound care clinic, the patient had I&D attempted with suction. She was scheduled for surgery to treat the abscess at last week, but they did not perform the surgery because they were waiting for the MRI results. Type 1 diabetes mellitus Elevated liver enzymes. Scoliosis. anxiety asthma, resolved Past Surgical History breast reduction abdominoplasty Reports: Family History Noncontributory Smoking History Former Smoker Social History Other Social History: Good social support, , Lives with children, Local resident Ambulatory Status Independent Review of Systems Full Review of Systems Constitutional: Denies: Fever Respiratory: Denies: Shortness of breath Cardiovascular: Denies: Chest pain GI: Reports: Nausea, Denies: Vomiting Female: Denies: Incontinence, Urinary frequency, Vaginal discharge Musculoskeletal: Reports: Back pain Complete sys rev & neg: except as marked. Physical Exam Nursing note and vitals reviewed. Constitutional: Well-developed, well-nourished. Not diaphoretic. Head: Normocephalic and atraumatic. Mouth/Throat: Oropharynx is clear and moist. No oropharyngeal exudate. Eyes: EOM are normal. Pupils are equal, round, and reactive to light. Neck: Supple, no tracheal deviation. Cardiovascular: Normal rate, regular rhythm. Equal and intact distal pulses throughout. Pulmonary/Chest: Effort normal and breath sounds normal. No respiratory distress. Abdominal: Soft. No distension. mild epigastric tenderness, no rebound, or guarding. Musculoskeletal: Range of motion grossly intact, moving all extremities. No edema. Right CVA tenderness Neurological: AOx3. Grossly nonfocal exam. Strength and sensation intact and equal to bilateral upper and lower extremities. Skin: Warm and dry, no rashes or pallor appreciated. Psychiatric: Appropriate mood and affect. Behavior appears normal. Vital Signs Vital Signs Date Time Temp Pulse Resp B/P Pulse Ox O2 Delivery O2 Flow Rate FiO2 12/02/16 19:14 80 16 99 Room Air 12/02/16 18:02 70 16 118/83 97 Room Air 12/02/16 15:11 37.0 95 20 125/79 98 Room Air Initial VS: Reviewed Wrist / Hand: Full range of motion, Non-tender, No edema Interpretation & Diagnostics Interpretation & Diagnostics: ABDOMINAL US IMPRESSION: Cholelithiasis however no other sonographic criteria for acute cholecystitis. Please correlate clinically and with LFTs. Coarse, echogenic liver suggesting diffuse hepatocellular disease/fatty infiltration. Dictated by: Wilbur Gold M.D. on 12/02/2016 at 20:00 Approved by: Wilbur Gold M.D. on 12/02/2016 at 20:02 Lab Results Interpretation Result Diagram: 12/02/16 1535 12/02/16 1535 Test 12/02/16 15:35 12/02/16 15:44 12/02/16 16:40 White Blood Count 4.4th/mm3 (3.8-10.1) Red Blood Count 4.18mil/mm3 (3.90-5.20) Hemoglobin 13.5g/dL (12.0-15.6) Hematocrit 40.7% (35.0-46.0) Mean Corpuscular Volume 97.4fL (81-100) Mean Corpuscular Hemoglobin 32.3pg (27.0-35.0) Mean Corpuscular Hemoglobin Concent 33.2% (32.0-37.0) Red Cell Distribution Width 13.6% (12.3-15.4) Platelet Count alfredo/L (150-400) Neutrophils (%) (Auto) 58.6% (40-74) Lymphocytes (%) (Auto) 28.7% (14-46) Monocytes (%) (Auto) 9.9% (4-12) Eosinophils (%) (Auto) 2.1% (0-5) Basophils (%) (Auto) 0.5% (0-3) Sodium Level 133mEq/L (134-144) Potassium Level 4.4mEq/L (3.5-5.2) Chloride Level 99mEq/L (97-108) Carbon Dioxide Level 19mmol/L (18-29) Blood Urea Nitrogen 10mg/dL (6-20) Creatinine 0.67mg/dL (0.57-1.00) Estimat Glomerular Filtration Rate 146mL/min (>59) Glucose Level 140mg/dL (60-99) Calcium Level 9.2mg/dL (8.5-10.1) Magnesium Level 1.7mg/dL (1.6-2.6) Total Bilirubin 0.6mg/dL (0.0-1.2) Aspartate Amino Transf (AST/SGOT) 129U/L (0-50) Alanine Aminotransferase (ALT/SGPT) 122U/L (0-32) Alkaline Phosphatase 248U/L (25-150) Total Protein 6.6g/dL (6.4-8.4) Albumin 3.6g/dL (3.4-5.0) Lipase 23U/L (13-60) Urine Color Yellow (YELLOW) Urine Appearance Clear (CLEAR,HAZY) Urine pH 6.5 (5.0-8.0) Urine Specific Saxon 1.010 (1.003-1.035) Urine Protein Negativemg/dL (NEG,TRACE) Urine Glucose (UA) Negativemg/dL (NEGATIVE) Urine Ketones Negativemg/dL (NEGATIVE) Urine Occult Blood Small (NEGATIVE) Urine Nitrite Negative (NEGATIVE) Urine Bilirubin Negative (NEGATIVE) Urine Urobilinogen Normalmg/dL (NORMAL) Urine Leukocyte Esterase Negative (NEGATIVE) Urine RBC 3-10/hpf (0-2) Urine WBC 0-5/hpf (0-5) Urine Epithelial Cells Few/hpf (NONE-MOD) Urine Crystals None seen (NONE SEEN) Urine Bacteria None/hpf (NONE-FEW) Urine Hyaline Casts None/lpf (NONE) Urine Granular Casts None seen (NONE SEEN) Urine Waxy Casts None seen (NONE SEEN) Urine Red Blood Cell Casts None seen (NONE SEEN) Urine White Blood Cell Casts None seen (NONE SEEN) Urine Mucus Present (None Seen) Urine Trichomonas None seen (NONE SEEN) Urine Yeast None (NONE SEEN) Urinalysis Comment None Urine Culture Reflexed Not indicated Prothrombin Time 10.2sec (8.1-12.5) Prothromb Time International Ratio 0.95ratio Lactic Acid Level 1.0mmol/L (0.4-2.0) CT Abd / Pelvis Interpretation IMPRESSION: Heterogeneity and enlargement of the uterus. Please correlate clinically, and with laboratory data, as this is a technically nonspecific finding. Differential includes uterine fibroids, endometritis among other possibilities. Anterior abdominal wall subcutaneous fat stranding and inflammation/cellulitis. Recommend clinical correlation. Mild hepatic steatosis. Nodular contour of the liver which can be seen in cirrhosis although please correlate clinically, and with LFTs. This finding is grossly unchanged since 05/02/13. Cholelithiasis although no other CT evidence of acute cholecystitis. Normal appendix. Dictated by: Wilbur Gold M.D. on 12/02/2016 at 17:56 Approved by: Wilbur Gold M.D. on 12/02/2016 at 18:05 Study type: Abdominal CT no contrast Interpretation / Wet Read by: Interpret - Radiologist Re-Eval/Medical Decision Med Decision/Clinical Course 31-year-old female presenting to the ED for evaluation of right-sided lower back pain radiating to the right flank. No lower abdominal tenderness to palpation, no lower abdominal pain, no pelvic complaints. She does have elevated LFTs that are increased from previous, however no right upper quadrant tenderness to palpation, no right-sided abdominal tenderness. Her CT scan does not demonstrate any obvious abnormalities that would explain her current symptoms; the findings above were discussed with the patient. She does have cholelithiasis without evidence of cholecystitis again, I discussed that while this may be responsible for her symptoms, this seems less likely given the location of her pain and her physical exam. Upon reassessment, patient reports improvement in her symptoms. She wants to go home and will follow up with her regular doctor tomorrow. Careful return depressions were discussed. Patient agreeable to the plan as stated, no further questions. Time of Eval: 15:19 Re-Evaluation/Progress Note: Pt checked. Plan for CT scan, fluids, and Toradol. Time of Eval: 19:00 Re-Evaluation/Progress Note: Pt is improved on reassessment. Plan for discharge. F/U and RTER warnings given. All questions addressed. Counseled Regarding: Diagnosis, Lab results, Need for follow-up, When/why to return to ED Discharge & Departure Primary Impression: Low back pain Chronicity: acute Back pain laterality: right Sciatica presence: unspecified whether sciatica present Qualified Code: M54.5 - Low back pain Disposition: Home Discharge Condition All VS Reviewed: Yes Condition: Stable Additional Instructions: Thank you for entrusting us with your care today. As we discussed, your CT scan does not show any signs of acute abnormalities. I do not believe there are any emergent causes for your symptoms based on your exam. Follow up with your primary care physician and GI in the next week. Return to the Emergency Department if you experience any new or worsening symptoms including increased pain, vomiting or if there's anything else of concern to you. I hope you feel better soon! Referrals: Ayah Au (PCP) Marla Franklin MD Attestation Portion of this note were transcribed by Radha Teague. Dr. Terri Kat, personally performed the history, physical exam, and medical decision-making: I reviewed and confirmed the accuracy for the information in the transcribed note. Signed by: juana Carbajal, 12/02/16 1800 copies to: Marla Franklin MD; Ayah Au William B MD Dec 02, 2016 15:38 Radha Teague Dec 02, 2016 15:41 Chronicity: acute Back pain laterality: right Sciatica presence: unspecified whether sciatica present Qualified Code: M54.5 - Low back pain Disposition: Home Discharge Condition All VS Reviewed: Yes Condition: Stable Additional Instructions: Thank you for entrusting us with your care today. As we discussed, your CT scan does not show any signs of acute abnormalities. I do not believe there are any emergent causes for your symptoms based on your exam. Follow up with your primary care physician and GI in the next week. Return to the Emergency Department if you experience any new or worsening symptoms including increased pain, vomiting or if there's anything else of concern to you. I hope you feel better soon! Referrals: Ayah Au (PCP) Marla Franklin MD Attestation Portion of this note were transcribed by Radha Teague. Dr. Terri Kat, personally performed the history, physical exam, and medical decision-making: I reviewed and confirmed the accuracy for the information in the transcribed note. Signed by: juana Carbajal, 12/02/16 1800 copies to: Marla Franklin MD; Ayah Au William B MD Dec 02, 2016 15:38 Radha Teague Dec 02, 2016 15:41
[2016-12-02 15:53] LABS: BASOPHILS % (AUTO) 0.5 % (0-3); EOSINOPHILS % (AUTO) 2.1 % (0-5); MONOCYTES % (AUTO) 9.9 % (4-12); Mean Corpuscular Hemoglobin 32.3 pg (27.0-35.0); Mean Corpuscular Volume 97.4 fL (81-100); NEUTROPHILS % (AUTO) 58.6 % (40-74)
[2016-12-02 16:08] LABS: Magnesium 1.7 mg/dL (1.6-2.6)
[2016-12-02] MEDS ORDERED: 0.9% Sodium Chloride 1,000 ML IV ONE (16:26)
[2016-12-02] MEDS ORDERED: Ondansetron 2 mg/mL 2 mL Inj IVPUSH PRN (16:30)
[2016-12-02 16:32] LABS: APPEARANCE,URINE CLEAR (CLEAR,HAZY); COLOR,URINE YELLOW (YELLOW); OCCULT BLOOD,URINE SMALL (NEGATIVE); PH,URINE 6.5 (5.0-8.0); UROBILINOGEN,URINE NORMAL (NORMAL)
[2016-12-02 17:12] LABS: INR 0.95 ratio
[2016-12-02 18:02] VITALS: BP 118/83; PULSE 70; RESP 16; O2SAT 97
--- NOTE | 2016-12-02 18:07 | DRSVH ---
PROCEDURE: CT ABDOMEN AND PELVIS WITH CONTRAST ([id number]) INDICATIONS: marked R CVA TTP, back pain; elev LFTs TECHNIQUE: After the administration of intravenous contrast, 5 mm thick sections acquired from the diaphragm to the symphysis. 5 mm coronal and sagittal reformats were acquired. For radiation dose reduction, the following was used: automated exposure control, adjustment of mA and/or kV according to patient prabhjot stevens. COMPARISON: [facility], CT, ABD/PELVIS W/CON (PN), 05/02/2013, 19:22. FINDINGS: Image quality: Excellent. ABDOMEN: Lung bases: Lung bases are clear. Heart size is normal. Solid organs: Possible mild hepatic steatosis and nodular hepatic contour as previously described. Sp skylar grossly unremarkable. Gallbladder contains a 1-2 mm gallstone and is otherwise unremarkable wit hout evidence of acute cholecystitis.. Biliary system is non dilated. Pancreas enhances normally. No adrenal nodules. Kidneys demonstrate normal size and enhancement, without hydronephrosis. Subcen timeter possible right renal cysts although too small to definitively. Peritoneum and bowel: Bowel loops demonstrate normal wall thickness and caliber. No free fluid or a ir. The appendix appears normal the rectum is decompressed otherwise unremarkable. Nodes and vessels: No retroperitoneal or mesenteric adenopathy by size criteria. Aorta and inferior vena cava are normal in size. Miscellaneous: There is diffuse anterior abdominal wall subcutaneous fat stranding. PELVIS: Genitourinary: Bladder wall thickness is normal. There is marked enlargement and heterogeneity of t he uterus, with presumed endometrial fluid or blood seen on image 67 series 2. Miscellaneous: No inguinal hernias or adenopathy. Bones: No suspicious bony lesions. No vertebral body compression fractures. There is scoliosis. IMPRESSION: Heterogeneity and enlargement of the uterus. Please correlate clinically, and with laboratory data, a s this is a technically nonspecific finding. Differential includes uterine fibroids, endometritis melyssa ng other possibilities. Anterior abdominal wall subcutaneous fat stranding and inflammation/cellulitis. Recommend clinical co rrelation. Mild hepatic steatosis. Nodular contour of the liver which can be seen in cirrhosis although please c orrelate clinically, and with LFTs. This finding is grossly unchanged since 05/02/13. Cholelithiasis although no other CT evidence of acute cholecystitis. Normal appendix. Dictated by: Wilbur Gold M.D. on 12/02/2016 at 17:56 Approved by: Wilbur Gold M.D. on 12/02/2016 at 18:05
[2016-12-02 19:14] VITALS: PULSE 80; RESP 16; O2SAT 99
--- NOTE | 2016-12-02 20:04 | DRSVH ---
PROCEDURE: US ABDOMEN, LIMITED ([id number]) INDICATIONS: RUQ US eval cholecystitis TECHNIQUE: Real-time focused scanning was performed of the abdomen, with image documentation. COMPARISON: [facility], US, ABDOMEN SONOGRAM LIMITED, 04/03/2011, 13:13. FINDINGS: The liver is echogenic measuring 14 cm in length. No focal hepatic lesion. Gallbladder part ially decompressed as the patient is not n.p.o. The gallbladder contains small gallstones demonstrati ng mobility. There is no wall thickening, pericholecystic fluid or sonographic Lemus sign. No defini te biliary ductal dilatation. IMPRESSION: Cholelithiasis however no other sonographic criteria for acute cholecystitis. Please correlate clinic ally and with LFTs. Coarse, echogenic liver suggesting diffuse hepatocellular disease/fatty infiltration. Dictated by: Wilbur Gold M.D. on 12/02/2016 at 20:00 Approved by: Wilbur Gold M.D. on 12/02/2016 at 20:02
== END 2016-12-02 19:14 | disposition home or self-care (01) ==
LOC: SED 15:08
DX: M54.5 Low back pain (principal); R11.0 Nausea; E10.9 Type 1 diabetes mellitus without complications; F41.9 Anxiety disorder, unspecified; J45.909 Unspecified asthma, uncomplicated; Z87.891 Personal history of nicotine dependence; Z88.5 Allergy status to narcotic agent; Z88.2 Allergy status to sulfonamides; Z88.8 Allergy status to other drugs, medicaments and biological substances; Z88.6 Allergy status to analgesic agent; Z79.4 Long term (current) use of insulin
CPT/HCPCS: 36415; 74177; 76705; 80053; 81000; 81025; 83605; 83690; 83735; 85025; 85610; 96374; 96375; 99285; J1885; J2405; J7030; Q9967

== ENCOUNTER → 2017-01-26 | Day surgery (SDC) | payer OTHER ==
[~2017-01-26] VITALS: Ht 160 cm; Wt 86.7 kg
[~2017-01-26] MED LIST changes: +ACYC400T2 PO; -ALPR0.5T8 PO; +Bupivacaine-MPF 0.5% 30 mL Inj INFILTRATE ONE; +Dexamethasone 4 mg/mL Inj IVPUSH PRN; +EPHEDrine Sulfate 50 mg/mL Inj IVPUSH PRN; +FOLI1TAB18 PO; +GLUC1KIT IJ; +HYDR2TAB27 PO; +HYDROmorphone 1 mg/mL Inj IVPUSH PRN; +Lactated Ringer's 1,000 ML IV ONE; +Lactated Ringer's 1,000 ML IV SCH; +Lactated Ringer's 500 ML IV PRN; +MetoCLOpramide 5 mg/mL 2 mL Inj IVPUSH PRN; +ONDA-53 PO; +Ondansetron 2 mg/mL 2 mL Inj IVPUSH PRN; +Ondansetron 2 mg/mL 2 mL Inj ONE; +PNV1TABL72 PO; +POLY17PO6 PO; +Phenylephrine 10,000 mCg/mL Inj IVPUSH PRN; +Polyethylene Glycol (PEG) 17 Gm Powder PO SCH; +Propofol 10,000 mCg/mL 20 mL Inj ONE; +fentaNYL-PF 50 mCg/mL 2 mL Inj IVPUSH PRN; +fentaNYL-PF 50 mCg/mL 2 mL Inj ONE
[2017-01-26 13:01] VITALS: BP 134/71; PULSE 87; RESP 16; O2SAT 99
--- NOTE | 2017-01-26 15:02 | PCM.HPANE ---
Patient Data Surgeon Admitting Provider: Attending Provider:Kip Brady MD Primary Care Physician:Reece Carlson DO Other Provider:SoledadocKennerdell Anesthesia Reason for Visit Recurrent Perirectal Abscess Ht/WT & BMI Height (Feet): 5 Height (Inches): 3 Weight (Kilograms): 86.7 Body Mass Index 33.00 Allergies Coded Allergies: Opioids-Meperidine and Related (Verified Allergy, Severe, HIVES ( ALLERGIC TO PRESERVATIVE-FREE WELL), 12/02/16) Sulfa (Sulfonamide Antibiotics) (Verified Allergy, Severe, RASH, 12/02/16) hydrocodone (Verified Allergy, Severe, 01/26/17) meperidine (Verified Allergy, Severe, HIVES, 12/02/16) sulfamethoxazole (Verified Allergy, Severe, 01/26/17) trimethoprim (Verified Allergy, Severe, 01/26/17) oxycodone HCl (Verified Allergy, Unknown, UNKNOWN (tolerates vicodin), 05/09) varenicline (Verified Allergy, Unknown, 12/02/16) acetaminophen (Verified Adverse Reaction, Severe, elevated liver function tests from [facility], 12/02/16) Past Anesthesia History Anesthesia History: Denies:: Abnormal Airway, Anesthesia Reactions, Difficult Intubation, Fam Anesthesia Reaction, Fam Malignant Hypertherm, Malignant Hyperthermia Diabetes History Hx Diabetes?: Yes Type of Diabetes: Type I Glycemic Control: Insulin Pump Current Bedside Blood Glucose: 185 MRSA MRSA: No Medications Hypertension Medication: No Home Meds Incl Beta Lavern: No Reported Medications Ibuprofen 800 Mg [id number] Mg PO TID PRN For Pain Ref 0 01/26/17 Ondansetron 4 Mg Tablet4 Mg PO Q4H PRN For Nausea 01/19/17 Insulin Human Lispro (HumaLOG U100 Insulin Vial)100 Unit/Ml UnitUnknown Dose PERCUTAN continuous #1 VIAL Ref 0 Check blood sugars before meals and at bedtime. Use correction factor only before meals. Blood Sugar Lispro Correction: <151, 0 units; 151-175, 1 unit; 176-200, 2 units; 201-225, 3 units; 226-250, 4 units; 251-275, 5 units; 276-300, 6 units; 301-325, 7 units; 326-350, 8 units; 351-375, 9 units; 376-400, 10 units; >400, 12 units. 01/19/17 Glucagon,Human Recombinant (Glucagon Emergency Kit)1 Mg Kit1 Mg IJ PRN blood sugars 01/19/17 Hydromorphone (Dilaudid)2 Mg Tablet2 Mg PO Q4H PRN Pain 01/19/17 Acyclovir 400 Mg [id number] Mg PO DAILY Ref 0 01/19/17 Discontinued Reported Medications Pnv with Ca,No.72/Iron/FA ( Plus Tablet)1 Each Tablet1 Each PO DAILY 01/19/17 Folic Acid 1 Mg Tablet1 Mg PO DAILY 30 Days 01/19/17 Ibuprofen 800 Mg [id number] Mg PO TID PRN For Pain Ref 0 05/03/15 Insulin Human Lispro (HumaLOG U100 Insulin Vial)100 Unit/Ml UnitUnknown Dose PERCUTAN continuous infusion #1 VIAL Ref 0 Check blood sugars before meals and at bedtime. Use correction factor only before meals. Blood Sugar Lispro Correction: <151, 0 units; 151-175, 1 unit; 176-200, 2 units; 201-225, 3 units; 226-250, 4 units; 251-275, 5 units; 276-300, 6 units; 301-325, 7 units; 326-350, 8 units; 351-375, 9 units; 376-400, 10 units; >400, 12 units. 05/01/15 Alprazolam 0.5 Mg Tablet0.5 Mg PO BID PRN For Anxiety Ref 0 02/03/15 History History of ENT Problems?: No HEENT History: Positive for:: Dysphagia Denies:: Abnormal Airway Denture Type: None Teeth Condition: Within Normal Limits Hx of Heart Problems?: No Cardiovascular History: Positive for:: Chest Pain (ED VISIT 2010 ETIOLOGY ? TESTING WNL) Denies:: Congestive Heart Failure Hypertension Hx of Respiratory Problem?: No Respiratory History: Denies:: Asthma (as child, resolved) Tuberculosis Use of C-PAP Machine Use of Inhalers / NEBS Other History/Comment Childhood asthma resolved Hx Neurologic Problems?: No Hx of GI Problems?: Yes Other History/Comment DOYLE Hx of Problems?: No Genitourinary History: Denies:: Kidney Stones Urinary Tract Infection Female Hx: Positive for:: Problems with Breasts? (hx of breast reduction) Denies:: Currently (neg preg test) Skin History: Denies:: History Skin Disorders? (SKIN RASHES) Hx Musculoskeletal Problems?: Yes Musculoskeletal History: Positive for:: Back Injury (scoliosis ) Denies:: Joint Replacement Musculoskeletal Trauma Hx of Psycho/Social Problems?: Yes Psycho Social History: Positive for:: Anxiety Hx Depression Denies:: Bipolar Disorder Suicide Attempt Hx Surgeries?: Yes (abdominoplasty, breast reduction, c-sections x2) Hx Any Other Health Problems?: Yes Other History: Positive for:: Hospitalization Denies:: Cancer Endocrine Disease Thyroid Disease History Blood Transfusions: Denies:: Blood Transfusions Hx Diabetes: YesBedside Blood Glucose: 185 Hx Alcohol Use: NoHx Substance Use: No Smoking Status: Former Smoker Have You Smoked inLast 12 mo: No Stop/Bang S-Snoring: Do You Snore Loudly: No T-Tired: feel tired, fatigued: No O-Obsered: Observed not breath: No P-Blood Pressure: treated: No B- Body Mass Index > 35 kg/m2: No A- Age over 50: No N- Neck Large Circumference: No G- Gender Male: No SAMUEL Total Score: 0 SAMUEL Risk Assessment: Low Risk, <3 Yes Risk Assessment Category Category 1A: Patient has history of documented sleep apnea, and HAS NOT received any narcotic, sedative or anesthesia administration during this stay. Category 1B: Patient has history of documented sleep apnea, and HAS received any narcotic , sedative or anesthesia administration during this stay Category 2: Patient has SUSPECTED Obstructive Sleep Apnea, and HAS received any narcotic , sedative or anesthesia administration during this stay. Category 3: Patient has SUSPECTED Obstructive Sleep Apnea and HAS NOT received narcotic, sedative or anesthesia administration during this stay. Category 4: Outpatient in Procedural Areas with known sleep apnea or who screen positive for High Risk via the STOP/BANG questionnaire. Exam Exam Vital Signs Vital Signs Date Time Temp Pulse Resp B/P Pulse Ox O2 Delivery O2 Flow Rate FiO2 01/26/17 13:01 36.1 87 16 134/71 99 Room Air General Appearance: Alert, Oriented X3, Cooperative, No Acute Distress HEENT/AIRWAY: MP 2 Lungs: Clear to Auscultation, Normal Air Movement Heart: Exam Unremarkable, Regular Rate/Rhythm, No Murmurs/Rubs/Gallops Meds/Labs/Diagnostics Admission Meds Current Medications Lactated Ringer's (Lr) 1,000 ml @ 120 mls/hr Q8H20M ONCE IV Last administered on 01/26/17t 12:44; Start 01/26/17 at 05:00; Stop 01/26/17 at 13:19; Status DC Bedside Blood Glucose: 185 Plan Impression Patient chart reviewed, patient interviewed and anesthestic plan with risks, benefits, and alternatives discussed, and informed consent obtained. NPO per Anesth. Guidelines: Yes ASA Physical Status: ASA2 Mod Systemic Disease Anesthetic Plan: MAC Bene/Risks/Altern/Consents: Yes HP Complete Prior to Induction: Yes Milton Ghosh MD Jan 26, 2017 15:02
[2017-01-26 17:37] VITALS: BP 101/80; PULSE 92; RESP 17; O2SAT 99
[2017-01-26 17:44] VITALS: BP 110/73; PULSE 76; RESP 12; O2SAT 100
--- NOTE | 2017-01-26 17:49 | PCM.SURGPO ---
Immediate Operative Note Date of Surgery: Jan 26, 2017 Pre Operative Diagnosis Recurrent perirectal abscess, possible fistula in Ano Post Operative Diagnosis Perirecal abscess with no fisula in Ano Procedure Rectal Exam under anesthesia, Drainage of perirectal Abscess Surgeon and Fitter/Welder Surgeon: Kip Brady MD Assistants: Mariluz cruz, Findings No Fistula opening seen in the rectum/ Anus Complications There were no periprocedural complications identified. Surgical Specimen Removed: Yes Specimen sent to Pathology: No Anesthetic Administered: MAC Grafts, Implants: None Output, Estimated Blood Loss: 2 Blood Admin during surgery: No Kip Brady MD Jan 26, 2017 17:49
[2017-01-26 18:05] VITALS: BP 141/78; PULSE 88; RESP 14; O2SAT 98
--- NOTE | 2017-01-26 18:11 | PCM.ANEP1 ---
Post Anesthesia PACU Phase 1 Assessment Date of Service: Jan 26, 2017 Vital Signs Vital Signs Date Time Temp Pulse Resp B/P Pulse Ox O2 Delivery O2 Flow Rate FiO2 01/26/17 17:44 76 12 110/73 100 Room Air 01/26/17 17:37 36.4 92 17 101/80 99 Room Air 01/26/17 13:01 36.1 87 16 134/71 99 Room Air Anesthetic Administered: MAC Level of Alertness: Awake, talking MASTERSON's with Equal Strength: Yes Pain: No Nausea or Vomiting: No CV Function & Hydration Stable: Yes Airway Device: Oxygen Delivery: Room Air Lungs: Clear to Auscultation, Normal Air Movement PACU Phase 2 Assessment Complications: No Follow up Care: No Patient Instructions Provided: N/A Milton Ghosh MD Jan 26, 2017 18:11
[2017-01-26 18:30] VITALS: BP 123/88; PULSE 79; RESP 14; O2SAT 98
--- NOTE | 2017-01-26 18:31 | OP ---
[address] [address] OPERATIVE REPORT PATIENT: FLORIDALMA MULLINS : 1985 MR#: [id number] ADMIT: 01/26/2017 JOB ID: [id number] DATE OF SURGERY: 01/26/2017 PREOPERATIVE DIAGNOSIS(ES): Recurrent perirectal abscess. Possible fistula in ano. POSTOPERATIVE DIAGNOSIS(ES): Recurrent perirectal abscess. No obvious fistula in ano. PROCEDURE PERFORMED: Rectal examination under anesthesia and drainage of perirectal abscess. SURGEON: Kip Brady MD MEDICAL MASSAGE THERAPIST: Mariluz Dumont DO COMPLICATIONS: None. CONDITION OF THE PATIENT: Stable. INDICATIONS: The patient is a 31-year-old lady who was 22 weeks when she presented to our emergency department in July of this year and was diagnosed with a perirectal abscess and had a bedside I and D in the emergency department. It was packed and was [facility] but the packing could not be redone and the wound eventually closed over. I met her in the clinic on August 13, 2016, when she presented with recurrent episode of pain. At that point, we got a pelvic MRI which showed some left anterolateral perianal abscess with phlegmon measuring about 3.2 cm. She was then transferred to [facility] because we could not take care of her in the operating room, but she tells me that she ever actually was taken to the operating room. After that she continued to have recurrent episodes of bloody drainage of clear fluid from this repeatedly every week. After discussing the risks, benefits, and alternatives, she was brought to the operating room today for rectal examination under anesthesia with drainage of the abscess with possible seton placement. PROCEDURE DETAILS: She was placed in the supine position, underwent sedation, and then was placed in the lithotomy position. The perineum was prepped and draped in the usual sterile fashion. Surgical time-out was undertaken using safety checklist and all were in agreement. I began by infiltrating the site of drainage (there was an external opening of the abscess on the left side) with 0.5% bupivacaine and enlarged this opening with a hemostat and electrocautery. The cavity here appeared mostly superficial but I spent quite a bit of time probing medially towards the rectum, looking for internal openings anteriorly and posteriorly and laterally. I even infused hydrogen peroxide to try and see if there was any evidence of internal extravasation and I was not able to find it. At that point, I made a counter incision laterally on the lateral aspect of the abscess pocket and irrigated the wound with saline and placed a quarter-inch [place] drain through both these wounds, securing with a 2-0 nylon. At that point I terminated the procedure. We dressed her with gauze and a pad and she was recovered from sedation and was taken to the recovery room in stable condition. GAIL
== END | disposition home or self-care (01) ==
LOC: SAS 12:39
PROVIDERS: ATTEND Student in an Organized Health Care Education/Training Program
PROC: 0D9P0ZZ Drainage of Rectum, Open Approach (ICD-10-PCS; principal; 2017-01-26 14:45)
DX: K61.1 Rectal abscess (principal); E10.9 Type 1 diabetes mellitus without complications; Z96.41 Presence of insulin pump (external) (internal); K75.81 Nonalcoholic steatohepatitis (NASH); E66.9 Obesity, unspecified; Z87.891 Personal history of nicotine dependence; Z68.34 Body mass index [BMI] 34.0-34.9, adult
CPT/HCPCS: 46040; J2405; J2704; J3010; J7120